=== PATIENT | female | born 1985 ===

== ENCOUNTER 2017-11-05 00:50 | Inpatient (IN) | payer OTHER ==
[~2017-11-05] VITALS: Ht 154.9 cm; Wt 72.6 kg
[~2017-11-05 00:50] MED LIST: Colace 100MG PO; Mylicon 125MG PO; OXYC1TAB9 PO; TRANDATE PO
== END 2017-11-07 21:56 | disposition home or self-care (01) | DRG 202 ==
LOC: ER 00:50 → MEDI 20:16
PROC: 4A033R1 Measurement of Arterial Saturation, Peripheral, Percutaneous Approach (ICD-10-PCS; principal; 2017-11-05)
PROC: 3E0F7GC Introduction of Other Therapeutic Substance into Respiratory Tract, Via Natural or Artificial Opening (ICD-10-PCS; 2017-11-05)
PROC: BB24ZZZ Computerized Tomography (CT Scan) of Bilateral Lungs (ICD-10-PCS; 2017-11-05)
DX: J20.9 Acute bronchitis, unspecified (principal); N39.0 Urinary tract infection, site not specified; E86.0 Dehydration; B96.1 Klebsiella pneumoniae [K. pneumoniae] as the cause of diseases classified elsewhere

== ENCOUNTER 2020-05-03 15:58 | Emergency (ER) | payer OTHER ==
[~2020-05-03] VITALS: Ht 154.9 cm; Wt 79.4 kg
== END 2020-05-03 18:54 | disposition home or self-care (01) ==
LOC: ER 15:58
DX: N39.0 Urinary tract infection, site not specified (principal); R10.12 Left upper quadrant pain; R10.32 Left lower quadrant pain

== ENCOUNTER 2021-12-10 18:15 | Emergency (ER) | payer OTHER ==
[~2021-12-10] VITALS: Ht 157.5 cm; Wt 73.5 kg
== END 2021-12-10 21:09 | disposition home or self-care (01) ==
LOC: ER 18:15
DX: N39.0 Urinary tract infection, site not specified (principal); R30.0 Dysuria; M54.9 Dorsalgia, unspecified